=== PATIENT | male | born 1955 | race Caucasian/White ===

== ENCOUNTER 2018-11-19 16:13 | Inpatient (IN) | payer BC, MEDICAID ==
[~2018-11-19] VITALS: Ht 175.3 cm; Wt 74.8 kg
[2018-11-19 18:18] LABS: BASOPHILS % (AUTO) 0.7 % (0.0-2.0); EOSINOPHILS % (AUTO) 0.2 % (1.0-6.0); HEMATOCRIT 40.5 % (41-53); HEMOGLOBIN 13.4 g/dL (13.5-17.5); LYMPHOCYTES % (AUTO) 13.2 % (22.0-44.0); MEAN CORPUSCULAR HEMOGLOBIN 30.9 pg (26.0-34.0); MEAN CORPUSCULAR HGB CONC 33.2 G/dL (31.0-37.0); MEAN CORPUSCULAR VOLUME 93 fL (80-100); MONOCYTES # (AUTO) 0.4 K/uL (0.1-1.0); MONOCYTES % (AUTO) 5.9 % (2.0-9.0); PLATELET COUNT (AUTO) 255 K/uL (150-450); RED BLOOD CELL COUNT(AUTO) 4.35 MIL/uL (4.50-5.90); RED CELL DISTRIBUTION WIDTH 13.1 % (11.5-14.5)
[2018-11-19 18:30] LABS: ANION GAP 9 mmol/L (8-16); CALCIUM, TOTAL 9.4 mg/dL (8.8-10.5); CARBON DIOXIDE 29 mmol/L (22-29); CHLORIDE 103 mmol/L (98-107); CREATININE 1.13 mg/dL (0.60-1.30); GLOMERULAR FILTR. RATE CALC > 60 mL/min (>60); GLUCOSE,RANDOM 104 mg/dL (70-110); POTASSIUM 4.5 mmol/L (3.5-5.1); SODIUM SERUM 141 mmol/L (136-145); UREA NITROGEN, BLOOD 14 mg/dL (7-18)
[2018-11-19 18:35] LABS: AMPHET/METH SCREEN,URINE NEGATIVE (NEGATIVE); BARBITURATE SCREEN, URINE NEGATIVE (NEGATIVE); BENZODIAZEPINES SCREEN,URINE NEGATIVE (NEGATIVE); CANNABINOID SCREEN,URINE POSITIVE (NEGATIVE); COCAINE SCREEN,URINE NEGATIVE (NEGATIVE); METHADONE SCREEN, URINE NEGATIVE (NEGATIVE); OPIATE SCREEN,URINE NEGATIVE (NEGATIVE)
[2018-11-19 18:37] LABS: PHENCYCLIDINE SCREEN,URINE NEGATIVE (NEGATIVE)
[2018-11-19 18:37] LABS: ALBUMIN 4.2 g/dL (3.4-5.0); ALKALINE PHOSPHATASE 71 U/L (46-116); ASPARTATE AMINOTRANSFERASE 19 U/L (15-37); BILIRUBIN,TOTAL 0.3 mg/dL (0.1-1.0); TOTAL PROTEIN, SERUM 7.2 g/dL (6.4-8.2)
[2018-11-19 18:56] LABS: ALANINE AMINOTRANSFERASE 18 U/L (12-78)
[2018-11-19] MEDS ORDERED: OMEP20 PO (20:41)
[2018-11-19] MEDS ORDERED: VITA400T9 PO (20:41)
[2018-11-19] MEDS ORDERED: QUET25TA PO (20:41)
[2018-11-19] MEDS ORDERED: GABA-531 PO (20:41)
[2018-11-19] MEDS ORDERED: TAMS-1 PO (20:41)
[2018-11-19] MEDS ORDERED: BIFI4CAP PO (20:41)
[2018-11-19] MEDS ORDERED: GLUC-148 PO (20:41)
[2018-11-19] MEDS ORDERED: LORazepam 1 MG TABLET PO ONE (21:30)
[2018-11-19] MEDS ORDERED: ZOLPIDEM TARTRATE 10 MG TABLET PO PRN (23:30)
[2018-11-19] MEDS ORDERED: HALOPERIDOL 5 MG TABLET PO PRN (23:30)
[2018-11-20] MEDS ORDERED: MAG HYDROX/AL HYDROX/SIMETH ES 30 ML SUSPENSION UDCUP PO PRN
[2018-11-20] MEDS ORDERED: IBUPROFEN 400 MG TABLET PO PRN
[2018-11-20] MEDS ORDERED: GuaiFENesin/D-METHORPHAN [SUGAR-FREE] 200-20MG/10 ML SYRUP UDCUP PO PRN
[2018-11-20] MEDS ORDERED: ACETAMINOPHEN 325 MG TABLET PO PRN
[2018-11-20] MEDS ORDERED: PETROLATUM,WHITE 28 GM JELLY TP PRN
[2018-11-20] MEDS ORDERED: ALBUTEROL SULFATE HFA 90 MCG/PUFF 8 GM INHALER IH PRN
[2018-11-20] MEDS ORDERED: ONDANSETRON HCL 4 MG TABLET PO PRN
[2018-11-20] MEDS ORDERED: DOCUSATE SODIUM 100 MG CAPSULE PO PRN
[2018-11-20] MEDS ORDERED: MAGNESIUM HYDROXIDE SUSPENSION 30 ML UDCUP PO PRN
[2018-11-20] MEDS ORDERED: CloNIDine HCL 0.1 MG TABLET PO PRN
[2018-11-20] MEDS ORDERED: LOPERAMIDE HCL 2 MG CAPSULE PO PRN
[2018-11-20] MEDS ORDERED: NICOTINE 14 MG/24 HOUR PATCH TD PRN
[2018-11-20 03:14] VITALS: BP 172/94
[2018-11-20] MEDS: LORazepam 2 MG TABLET PO PRN ×2 (03:21→16:22)
[2018-11-20 07:27] LABS: CHOL/HDL RATIO 3.6 (4.2-7.3); FREE T4 (FREE THYROXINE) 0.83 ng/dL (0.76-1.46); THYROID STIMULATING HORMONE 2.02 uIU/mL (0.36-3.74)
[2018-11-20 08:15] VITALS: BP_SYST 107; BP_SYST 144; BP_DIAS 67; BP_DIAS 88
[2018-11-20] MEDS: OMEPRAZOLE 20 MG CAPSULE PO SCH (09:08)
[2018-11-20] MEDS: TAMSULOSIN HCL 0.4 MG CAPSULE PO SCH (09:08)
[2018-11-20 16:15] VITALS: BP 153/96
[2018-11-20] MEDS ORDERED: QUEtiapine FUMARATE 200 MG TABLET PO SCH (21:00)
[2018-11-21 06:40] VITALS: BP 131/86
[2018-11-21 08:47] VITALS: BP 139/96
[2018-11-21] MEDS: QUEtiapine FUMARATE 100 MG TABLET PO SCH (09:30)
[2018-11-21] MEDS: TAMSULOSIN HCL 0.4 MG CAPSULE PO SCH ×2 (09:30→21:15)
[2018-11-21] MEDS: OMEPRAZOLE 20 MG CAPSULE PO SCH (09:31)
[2018-11-21] MEDS: GABAPENTIN 300 MG CAPSULE PO SCH (16:15)
[2018-11-21] MEDS: QUEtiapine FUMARATE 300 MG TABLET PO SCH (21:14)
[2018-11-21] MEDS: LACTOBACILLUS ACIDOPHILUS/BULGARICUS TABLET PO SCH (21:14)
[2018-11-21] MEDS: VITAMIN E 400 UNITS CAPSULE PO SCH (21:15)
[2018-11-21] MEDS: GLUCOSAMINE HCL/CHONDROITIN 500-400 MG TABLET PO SCH (21:15)
[2018-11-22 05:42] VITALS: BP 135/80
[2018-11-22 08:51] VITALS: BP 163/86
[2018-11-22] MEDS: LACTOBACILLUS ACIDOPHILUS/BULGARICUS TABLET PO SCH (09:20)
[2018-11-22] MEDS: GLUCOSAMINE HCL/CHONDROITIN 500-400 MG TABLET PO SCH ×2 (09:20→16:33)
[2018-11-22] MEDS: QUEtiapine FUMARATE 100 MG TABLET PO SCH (09:20)
[2018-11-22] MEDS: VITAMIN E 400 UNITS CAPSULE PO SCH ×2 (09:20→16:33)
[2018-11-22] MEDS: GABAPENTIN 300 MG CAPSULE PO SCH ×3 (09:21→16:33)
[2018-11-22] MEDS: OMEPRAZOLE 20 MG CAPSULE PO SCH (09:21)
[2018-11-22 09:53] VITALS: BP 133/67
[2018-11-22 16:30] VITALS: BP 143/80
[2018-11-22] MEDS: QUEtiapine FUMARATE 300 MG TABLET PO SCH (20:33)
[2018-11-22] MEDS: TAMSULOSIN HCL 0.4 MG CAPSULE PO SCH (20:33)
[2018-11-23 08:09] VITALS: BP 157/85
[2018-11-23] MEDS: QUEtiapine FUMARATE 100 MG TABLET PO SCH (08:41)
[2018-11-23] MEDS: OMEPRAZOLE 20 MG CAPSULE PO SCH (08:41)
[2018-11-23] MEDS: VITAMIN E 400 UNITS CAPSULE PO SCH (08:41)
[2018-11-23] MEDS: GABAPENTIN 300 MG CAPSULE PO SCH ×2 (08:41→12:53)
[2018-11-23] MEDS: GLUCOSAMINE HCL/CHONDROITIN 500-400 MG TABLET PO SCH (08:41)
[2018-11-23] MEDS: LACTOBACILLUS ACIDOPHILUS/BULGARICUS TABLET PO SCH (08:42)
[2018-11-23] MEDS ORDERED: TAMS-1 PO (09:18)
[2018-11-23] MEDS ORDERED: ACID1TAB8 PO (09:18)
[2018-11-23] MEDS ORDERED: GLUC-29 PO (09:19)
[2018-11-23] MEDS ORDERED: GABA-531 PO (09:20)
[2018-11-23] MEDS ORDERED: QUET300T2 PO (09:21)
[2018-11-23] MEDS ORDERED: QUET100T PO (09:21)
[2018-11-23 09:35] VITALS: BP 133/77
== END 2018-11-23 13:06 | disposition home or self-care (01) | DRG 885 ==
LOC: EMS 16:13 → B2X 23:30
PROVIDERS: ADMIT Psychiatry & Neurology Psychiatry; ATTEND Psychiatry & Neurology Psychiatry
DX: F31.5 Bipolar disorder, current episode depressed, severe, with psychotic features (principal); D64.9 Anemia, unspecified; F12.10 Cannabis abuse, uncomplicated; F41.9 Anxiety disorder, unspecified; K21.9 Gastro-esophageal reflux disease without esophagitis; M19.90 Unspecified osteoarthritis, unspecified site; N40.0 Benign prostatic hyperplasia without lower urinary tract symptoms; R45.850 Homicidal ideations; Z71.51 Drug abuse counseling and surveillance of drug abuser
CPT/HCPCS: 84436; 84439; 84443; G0480